=== PATIENT | male | born 1940 | race Caucasian/White ===

== ENCOUNTER 2018-01-01 07:41 | Day surgery (SDC) | payer MEDICARE ==
[~2018-01-01] VITALS: Ht 167.6 cm; Wt 63.6 kg
[~2018-01-01 07:41] MED LIST: FLUT12HF3 IH; IPRA4AER INH; TIOT18CA INH
[2018-01-01] MEDS ORDERED: LACTATED RINGERS 1,000 ML IV SCH (08:23)
[2018-01-01] MEDS ORDERED: MIDAZOLAM 1 MG/ML, 5ML ONE (09:15)
[2018-01-01] MEDS ORDERED: FENTANYL PF 100 MCG/2ML ONE (09:15)
[2018-01-01] MEDS ORDERED: LIDOCAINE GEL 2%, 5ML ONE (16:03)
[2018-01-01] MEDS ORDERED: LIDOCAINE 4% TOPICAL SOLUTION 50 ML ONE (16:03)
[2018-01-01] MEDS ORDERED: LIDOCAINE 1%, 50ML ONE (16:03)
== END 2018-01-01 12:30 | disposition home or self-care (01) ==
LOC: OUT 07:41
PROVIDERS: ATTEND Internal Medicine Critical Care Medicine
DX: R04.2 Hemoptysis (principal); N40.0 Benign prostatic hyperplasia without lower urinary tract symptoms; J40 Bronchitis, not specified as acute or chronic; Z87.891 Personal history of nicotine dependence; Z79.899 Other long term (current) drug therapy
CPT/HCPCS: 31622; 99152; 99153; J2250; J3010; J3490

== ENCOUNTER → 2018-10-07 | Outpatient (CLI) | payer MEDICARE | END | disposition home or self-care (01) | LOC: PETCFH 12:21 | PROVIDERS: ATTEND Nurse Practitioner Family | DX: R91.8 Other nonspecific abnormal finding of lung field (principal) | CPT/HCPCS: 78815; A9552 ==

== ENCOUNTER 2018-11-07 05:24 | Inpatient (IN) | payer MEDICARE ==
[~2018-11-07] VITALS: Ht 167.6 cm; Wt 57.2 kg
[2018-11-07] MEDS ORDERED: ALBUTEROL/IPRATROPIUM 2.5MG/0.5MG, 3 ML ONE ×5 (05:32→18:55)
[2018-11-07] MEDS: ALBUTEROL/IPRATROPIUM 2.5MG/0.5MG, 3 ML NPPB SCH ×4 (05:44→15:00)
--- NOTE | 2018-11-07 05:49 | NUR ---
PT POSITIONED FOR COMFORT, HOB ELEVATES 35DEG AND REMAINS ON BIPAP. PT WITH BLOOD TO LAB AND X-RAY TO BEDSIDE IN NO DISTRESS AT THIS TIME.
[2018-11-07] MEDS ORDERED: ALBUTEROL/IPRATROPIUM 2.5MG/0.5MG, 3 ML NPPB PRN (06:00)
[2018-11-07 06:37] LABS: TROPONIN I 0.603 ng/mL (0.000-0.045)
--- NOTE | 2018-11-07 06:37 | NUR ---
PT REMAINS ON BIP[AP AND IN NO DISTRESS VSS WITH RESP TX X 3 COMPLETE.
--- NOTE | 2018-11-07 07:00 | NUR ---
REPORT FROM CLOTILDE MUÑIZ. PT RESTING ON Omnistream. CALL LIGHT IN REACH. CP MONITORS IN PLACE.
--- NOTE | 2018-11-07 07:43 | NUR ---
RT TO BEDSIDE. PT SWITCHESD FROM BIPAP TO VAPOTHERM.
--- NOTE | 2018-11-07 09:14 | NUR ---
AT BEDSIDE FOR CENTRAL LINE PLACEMENT.
[2018-11-07] MEDS ORDERED: SODIUM CHLORIDE 0.9% 1,000ML IVBOLUS ONE (09:30)
--- NOTE | 2018-11-07 09:41 | NUR ---
PT BACK ON BIPAP, SATS LOW 80'S ON VAPOTHERM. RT AT BEDSIDE. PT SATS NOW 98%.
[2018-11-07 12:58] LABS: MEAN CORPUSCULAR HEMOGLOBIN 31.8 pg (27.5-34.5); MEAN CORPUSCULAR HGB CONC 32.4 g/dL (33.2-36.2); MEAN CORPUSCULAR VOLUME 98.2 fL (81-97); MEAN PLATELET VOLUME 7.1 fL (7.4-10.4); PLATELET COUNT 404 x10^3/uL (130-400); RED BLOOD COUNT 3.52 x10^6/uL (4.38-5.82); RED CELL DISTRIBUTION WIDTH 16.6 % (9.4-14.8)
[2018-11-07 13:08] LABS: TROPONIN I 0.573 ng/mL (0.000-0.045)
[2018-11-07 13:13] LABS: BASOPHILS % (AUTO) 0 % (0-1); EOSINOPHILS % (AUTO) 0 % (1-7); LYMPHOCYTES # (AUTO) 0.17 x10^3/uL (1-3.4); LYMPHOCYTES % (AUTO) 2 % (22-44); MD SCAN; MONOCYTES # (AUTO) 0.25 x10^3/uL (0.2-0.8); MONOCYTES % (AUTO) 3 % (2-9); NEUTROPHILS # (AUTO) 8.63 x10^3/uL (1.8-6.8); NEUTROPHILS % (AUTO) 95 % (42-75)
--- NOTE | 2018-11-07 13:23 | NUR ---
REPORT TO IRINA MUÑIZ.
--- NOTE | 2018-11-07 14:10 | NUR ---
PT ASSISTED WITH URINAL. APPROX 300 ML URINE OUTPUT. CLEAR YELLOW.
[2018-11-07 14:30] LABS: ALANINE AMINOTRANSFERASE 16 U/L (12-78); ALBUMIN 2.6 g/dL (3.4-5.0); ANION GAP 10 mmol/L (5-15); CALCIUM 7.9 mg/dL (8.5-10.1); CHLORIDE 114 mmol/L (98-107); CREATININE 0.89 mg/dL (0.7-1.3)
[2018-11-07 14:33] LABS: ALKALINE PHOSPHATASE 61 U/L (45-117); BILIRUBIN,TOTAL 0.3 mg/dL (0.2-1.0); TOTAL PROTEIN 5.8 g/dL (6.4-8.2)
[2018-11-07] MEDS ORDERED: GABA300C10 PO (14:45)
[2018-11-07] MEDS ORDERED: BISACODYL 10 MG SUPP PR PRN (15:00)
[2018-11-07] MEDS ORDERED: hydrALAzine 20 MG/ML, 1ML IVPush PRN (15:00)
[2018-11-07] MEDS ORDERED: ENALAPRILAT 1.25 MG/ML, 2ML IVPush PRN (15:00)
[2018-11-07] MEDS ORDERED: DOCUSATE 100 MG CAPSULE PO PRN (15:00)
[2018-11-07] MEDS ORDERED: POLYETHYLENE GLYCOL 17 GM PACKET PO PRN (15:00)
[2018-11-07] MEDS ORDERED: LABETALOL 5MG/ML, 20ML IVPush PRN (15:00)
[2018-11-07] MEDS ORDERED: morphine SULFATE 10 MG/ML, 1ML IVPush PRN (15:00)
[2018-11-07] MEDS ORDERED: ONDANSETRON 2MG/ML, 2ML IVPush PRN (15:00)
[2018-11-07] MEDS ORDERED: GUAIFENESIN/DM 200-20MG, 10ML UDC PO PRN (15:00)
[2018-11-07] MEDS ORDERED: ACETAMINOPHEN 325 MG TABLET PO PRN (15:00)
[2018-11-07] MEDS ORDERED: ONDANSETRON ODT 4 MG PO PRN (15:00)
[2018-11-07] MEDS: LINEZOLID PMX 600MG/300ML 300 ML IV SCH (15:27)
[2018-11-07] MEDS: methylPREDNISolone SOD SUCC 125 MG/2 ML IVPush SCH ×2 (15:27→20:09)
[2018-11-07] MEDS: ENOXAPARIN 40 MG/0.4 ML SQ SCH (15:27)
[2018-11-07] MEDS: HYDROcodone/APAP 5/325 TABLET PO PRN ×2 (17:40→23:55)
[2018-11-07] MEDS: PIPERACILLIN/TAZO/PMX 3.375GM 50 ML IV SCH ×2 (17:40→20:09)
[2018-11-07] MEDS: FAMOTIDINE 20 MG/2 ML IVPush SCH (20:09)
[2018-11-07 20:35] LABS: TROPONIN I 0.426 ng/mL (0.000-0.045)
[2018-11-07] MEDS: BUDESONIDE 0.5 MG/2 ML INHA INH SCH (20:46)
[2018-11-07] MEDS ORDERED: BUDESONIDE 0.5 MG/2 ML INHA INH SCH (21:00)
[2018-11-07] MEDS: TRAZODONE 100MG TABLET PO SCH (22:31)
[2018-11-08] MEDS: PIPERACILLIN/TAZO/PMX 3.375GM 50 ML IV SCH ×4 (02:55→20:13)
[2018-11-08] MEDS: LINEZOLID PMX 600MG/300ML 300 ML IV SCH ×2 (02:55→16:58)
[2018-11-08 03:20] LABS: MEAN CORPUSCULAR HEMOGLOBIN 30.8 pg (27.5-34.5); MEAN CORPUSCULAR HGB CONC 31.4 g/dL (33.2-36.2); MEAN PLATELET VOLUME 7.2 fL (7.4-10.4); PLATELET COUNT 390 x10^3/uL (130-400); RED BLOOD COUNT 3.56 x10^6/uL (4.38-5.82); RED CELL DISTRIBUTION WIDTH 16.9 % (9.4-14.8)
[2018-11-08 03:26] LABS: ALANINE AMINOTRANSFERASE 18 U/L (12-78); ALBUMIN 2.6 g/dL (3.4-5.0); ANION GAP 9 mmol/L (5-15); CALCIUM 8.1 mg/dL (8.5-10.1); CHLORIDE 110 mmol/L (98-107); CHOLESTEROL, TOTAL 130 mg/dL (140-239); CREATININE 0.83 mg/dL (0.7-1.3)
[2018-11-08] MEDS: methylPREDNISolone SOD SUCC 125 MG/2 ML IVPush SCH ×4 (03:27→20:13)
[2018-11-08 03:28] LABS: ALKALINE PHOSPHATASE 56 U/L (45-117); BILIRUBIN,TOTAL 0.3 mg/dL (0.2-1.0); HDL CHOL % 34 % (26-37); HDL CHOLESTEROL (DIRECT) 44 mg/dL (40-60); LDL CHOLESTEROL,CALCULATED 75 mg/dL (54-169); LDL/HDL RATIO 1.7 (0.5-3.0); TOTAL PROTEIN 5.6 g/dL (6.4-8.2); TRIGLYCERIDES 54 mg/dL (50-200); VLDL CHOLESTEROL 11 mg/dL (0-25)
[2018-11-08 03:30] VITALS: BP 128/75
[2018-11-08 03:37] LABS: TROPONIN I 0.427 ng/mL (0.000-0.045)
[2018-11-08 03:45] LABS: BASOPHILS % (AUTO) 0 % (0-1); EOSINOPHILS % (AUTO) 0 % (1-7); LYMPHOCYTES # (AUTO) 0.21 x10^3/uL (1-3.4); LYMPHOCYTES % (AUTO) 1 % (22-44); MD SCAN; MONOCYTES # (AUTO) 0.48 x10^3/uL (0.2-0.8); MONOCYTES % (AUTO) 3 % (2-9); NEUTROPHILS # (AUTO) 14.38 x10^3/uL (1.8-6.8); NEUTROPHILS % (AUTO) 95 % (42-75)
[2018-11-08] MEDS: BUDESONIDE 0.5 MG/2 ML INHA INH SCH ×2 (08:40→18:30)
[2018-11-08] MEDS: FAMOTIDINE 20 MG/2 ML IVPush SCH (08:44)
[2018-11-08] MEDS ORDERED: FUROSEMIDE 40 MG/4 ML IV ONE (15:00)
[2018-11-08] MEDS: ENOXAPARIN 40 MG/0.4 ML SQ SCH (15:00)
[2018-11-08] MEDS: TRAZODONE 100MG TABLET PO SCH (20:13)
[2018-11-08] MEDS: FAMOTIDINE 20 MG TABLET PO SCH (20:13)
[2018-11-09] MEDS: PIPERACILLIN/TAZO/PMX 3.375GM 50 ML IV SCH ×4 (02:31→20:39)
[2018-11-09] MEDS: methylPREDNISolone SOD SUCC 125 MG/2 ML IVPush SCH ×3 (03:04→15:00)
[2018-11-09] MEDS: LINEZOLID PMX 600MG/300ML 300 ML IV SCH ×2 (03:04→15:17)
[2018-11-09 04:30] VITALS: BP 116/72
[2018-11-09] MEDS: FAMOTIDINE 20 MG TABLET PO SCH ×2 (08:10→20:39)
[2018-11-09] MEDS: BUDESONIDE 0.5 MG/2 ML INHA INH SCH ×2 (08:50→18:54)
[2018-11-09 09:12] LABS: MEAN CORPUSCULAR HEMOGLOBIN 30.9 pg (27.5-34.5); MEAN CORPUSCULAR VOLUME 96.7 fL (81-97); MEAN PLATELET VOLUME 6.9 fL (7.4-10.4); PLATELET COUNT 481 x10^3/uL (130-400); RED BLOOD COUNT 4.35 x10^6/uL (4.38-5.82); RED CELL DISTRIBUTION WIDTH 17.6 % (9.4-14.8)
[2018-11-09 09:24] LABS: ANION GAP 7 mmol/L (5-15); CALCIUM 8.5 mg/dL (8.5-10.1); CHLORIDE 107 mmol/L (98-107); CREATININE 1.08 mg/dL (0.7-1.3)
[2018-11-09 09:34] LABS: MD YES
[2018-11-09 09:35] LABS: LYMPH#(MANUAL) 0.44 x10^3/uL (1-3.4); LYMPHS% (MANUAL) 2 % (22-44); MONOS#(MANUAL) 0.88 x10^3/uL (0.3-2.7); MONOS% (MANUAL) 4 % (2-9); SEG#(MANUAL) 20.68 x10^3/uL (1.8-6.8); SEGS% (MANUAL) 94 % (42-75)
[2018-11-09 09:36] LABS: ANISOCYTOSIS 1+
[2018-11-09 09:37] LABS: <PLATELET ESTIMATE> INCREASED; <PLT MORPHOLOGY> NORMAL PLT MORPH; HYPERSEG PMNs 1+
[2018-11-09] MEDS: ENOXAPARIN 40 MG/0.4 ML SQ SCH (15:15)
[2018-11-09] MEDS ORDERED: FUROSEMIDE 40 MG/4 ML IV ONE (15:30)
[2018-11-09] MEDS: TRAZODONE 100MG TABLET PO SCH (20:39)
[2018-11-10] MEDS: LINEZOLID PMX 600MG/300ML 300 ML IV SCH (02:41)
[2018-11-10] MEDS: methylPREDNISolone SOD SUCC 125 MG/2 ML IVPush SCH ×2 (02:43→14:38)
[2018-11-10 04:00] VITALS: BP 92/52
[2018-11-10] MEDS: PIPERACILLIN/TAZO/PMX 3.375GM 50 ML IV SCH ×4 (04:16→20:46)
[2018-11-10 05:05] LABS: ALANINE AMINOTRANSFERASE 29 U/L (12-78); ALBUMIN 2.6 g/dL (3.4-5.0); ANION GAP 8 mmol/L (5-15); BASOPHILS # (AUTO) 0.02 x10^3/uL (0-0.1); BASOPHILS % (AUTO) 0 % (0-1); CALCIUM 7.9 mg/dL (8.5-10.1); CHLORIDE 104 mmol/L (98-107); CREATININE 1.01 mg/dL (0.7-1.3); EOSINOPHILS % (AUTO) 0 % (1-7); LYMPHOCYTES # (AUTO) 0.53 x10^3/uL (1-3.4); LYMPHOCYTES % (AUTO) 3 % (22-44); MD NO; MEAN CORPUSCULAR HEMOGLOBIN 31.6 pg (27.5-34.5); MEAN CORPUSCULAR HGB CONC 32.3 g/dL (33.2-36.2); MEAN CORPUSCULAR VOLUME 97.8 fL (81-97); MEAN PLATELET VOLUME 7.3 fL (7.4-10.4); MONOCYTES # (AUTO) 0.91 x10^3/uL (0.2-0.8); MONOCYTES % (AUTO) 6 % (2-9); NEUTROPHILS # (AUTO) 14.91 x10^3/uL (1.8-6.8); NEUTROPHILS % (AUTO) 91 % (42-75); PLATELET COUNT 456 x10^3/uL (130-400); RED BLOOD COUNT 4.16 x10^6/uL (4.38-5.82); RED CELL DISTRIBUTION WIDTH 17.2 % (9.4-14.8)
[2018-11-10 05:07] LABS: ALKALINE PHOSPHATASE 54 U/L (45-117); BILIRUBIN,TOTAL 0.4 mg/dL (0.2-1.0); TOTAL PROTEIN 5.5 g/dL (6.4-8.2)
[2018-11-10] MEDS ORDERED: FUROSEMIDE 40 MG/4 ML IV ONE (07:00)
[2018-11-10] MEDS: POTASSIUM CHLORIDE 20 MEQ TAB.ER.PRT PO SCH ×2 (08:07→17:15)
[2018-11-10] MEDS: FAMOTIDINE 20 MG TABLET PO SCH ×2 (08:08→20:46)
[2018-11-10] MEDS: BUDESONIDE 0.5 MG/2 ML INHA INH SCH ×2 (09:00→19:07)
[2018-11-10] MEDS: ENOXAPARIN 40 MG/0.4 ML SQ SCH (14:37)
[2018-11-10] MEDS: TRAZODONE 100MG TABLET PO SCH (20:46)
[2018-11-11] MEDS: methylPREDNISolone SOD SUCC 125 MG/2 ML IVPush SCH (03:16)
[2018-11-11] MEDS: PIPERACILLIN/TAZO/PMX 3.375GM 50 ML IV SCH ×4 (03:17→21:33)
[2018-11-11] MEDS: FAMOTIDINE 20 MG TABLET PO SCH ×2 (09:00→21:32)
[2018-11-11] MEDS: BUDESONIDE 0.5 MG/2 ML INHA INH SCH ×2 (09:55→21:00)
[2018-11-11 14:00] VITALS: BP 109/67
[2018-11-11] MEDS: ENOXAPARIN 40 MG/0.4 ML SQ SCH (15:15)
[2018-11-11 18:40] VITALS: BP 116/72
[2018-11-11] MEDS: TRAZODONE 100MG TABLET PO SCH (21:32)
[2018-11-12 02:32] VITALS: BP 111/69
[2018-11-12] MEDS: PIPERACILLIN/TAZO/PMX 3.375GM 50 ML IV SCH ×4 (03:38→21:06)
[2018-11-12 05:28] LABS: ANION GAP 5 mmol/L (5-15); CALCIUM 8.2 mg/dL (8.5-10.1); CHLORIDE 107 mmol/L (98-107); MEAN CORPUSCULAR HEMOGLOBIN 30.6 pg (27.5-34.5); MEAN CORPUSCULAR HGB CONC 31.2 g/dL (33.2-36.2); MEAN CORPUSCULAR VOLUME 98.1 fL (81-97); MEAN PLATELET VOLUME 6.7 fL (7.4-10.4); PLATELET COUNT 432 x10^3/uL (130-400); RED BLOOD COUNT 4.18 x10^6/uL (4.38-5.82); RED CELL DISTRIBUTION WIDTH 17.4 % (9.4-14.8)
[2018-11-12 07:02] LABS: BASOPHILS # (AUTO) 0.03 x10^3/uL (0-0.1); BASOPHILS % (AUTO) 0 % (0-1); EOSINOPHILS # (AUTO) 0.12 x10^3/uL (0-0.4); EOSINOPHILS % (AUTO) 1 % (1-7); LYMPHOCYTES # (AUTO) 0.95 x10^3/uL (1-3.4); LYMPHOCYTES % (AUTO) 8 % (22-44); MD SCAN; MONOCYTES # (AUTO) 0.87 x10^3/uL (0.2-0.8); MONOCYTES % (AUTO) 7 % (2-9); NEUTROPHILS # (AUTO) 10.62 x10^3/uL (1.8-6.8); NEUTROPHILS % (AUTO) 84 % (42-75)
[2018-11-12 07:30] VITALS: BP 96/61
[2018-11-12] MEDS: BUDESONIDE 0.5 MG/2 ML INHA INH SCH ×2 (09:00→21:21)
[2018-11-12] MEDS: FAMOTIDINE 20 MG TABLET PO SCH ×2 (10:07→21:07)
[2018-11-12 14:00] VITALS: BP 102/69
[2018-11-12] MEDS ORDERED: CEFD300C37 PO (14:13)
[2018-11-12] MEDS: ENOXAPARIN 40 MG/0.4 ML SQ SCH (15:58)
[2018-11-12 19:30] VITALS: BP 111/65
[2018-11-12] MEDS: TRAZODONE 100MG TABLET PO SCH (21:07)
[2018-11-13 01:24] VITALS: BP 125/69
[2018-11-13] MEDS: PIPERACILLIN/TAZO/PMX 3.375GM 50 ML IV SCH ×2 (03:19→08:50)
[2018-11-13 07:23] VITALS: BP 94/58
[2018-11-13] MEDS: FAMOTIDINE 20 MG TABLET PO SCH (08:50)
== END 2018-11-13 12:04 | disposition left against medical advice (07) | DRG 871 ==
LOC: ED 05:43 → EDIP 09:20 → CCU 14:35 → 3NE 11-11 15:05
PROVIDERS: ADMIT Internal Medicine; ATTEND Internal Medicine
PROC: 5A09357 Assistance with Respiratory Ventilation, Less than 24 Consecutive Hours, Continuous Positive Airway Pressure (ICD-10-PCS; principal; 2018-11-07)
PROC: 02HV33Z Insertion of Infusion Device into Superior Vena Cava, Percutaneous Approach (ICD-10-PCS; 2018-11-07)
PROC: B548ZZA Ultrasonography of Superior Vena Cava, Guidance (ICD-10-PCS; 2018-11-07)
DX: A41.9 Sepsis, unspecified organism (principal); J96.21 Acute and chronic respiratory failure with hypoxia; E43 Unspecified severe protein-calorie malnutrition; J15.9 Unspecified bacterial pneumonia; R65.21 Severe sepsis with septic shock; E87.2 Acidosis; J90 Pleural effusion, not elsewhere classified; I31.3 Pericardial effusion (noninflammatory); T38.0X5A Adverse effect of glucocorticoids and synthetic analogues, initial encounter; K21.9 Gastro-esophageal reflux disease without esophagitis; N40.0 Benign prostatic hyperplasia without lower urinary tract symptoms; I27.20 Pulmonary hypertension, unspecified; D53.9 Nutritional anemia, unspecified; J43.9 Emphysema, unspecified; Z53.21 Procedure and treatment not carried out due to patient leaving prior to being seen by health care provider; D75.89 Other specified diseases of blood and blood-forming organs; Z96.1 Presence of intraocular lens; R91.8 Other nonspecific abnormal finding of lung field; I07.1 Rheumatic tricuspid insufficiency; Z99.81 Dependence on supplemental oxygen; Z91.19 Patient's noncompliance with other medical treatment and regimen; Z87.01 Personal history of pneumonia (recurrent); Z87.891 Personal history of nicotine dependence; Z91.81 History of falling; Y92.89 Other specified places as the place of occurrence of the external cause; Z68.20 Body mass index [BMI] 20.0-20.9, adult; Z98.42 Cataract extraction status, left eye; Z98.41 Cataract extraction status, right eye
CPT/HCPCS: 36415; 36600; 71045; 80048; 80053; 80061; 82803; 83605; 83735; 83880; 84100; 84145; 84484; 85025; 87040; 87070; 87077; 87081; 87186; 87205; 93005; 93306; 94640; 94660; 96360; G0378; J1650; J1940; J2020; J2405; J2543; J7620; J7626; J2270; J2930; J3490; J7030

== ENCOUNTER 2019-01-07 16:38 | Inpatient (IN) | payer MEDICARE ==
[~2019-01-07] VITALS: Ht 167.6 cm; Wt 54.8 kg
[2019-01-19 13:36] VITALS: BP 133/75
== END 2019-01-19 15:16 | DRG 871 ==
LOC: ED 17:11 → EDIP 17:12 → ED 17:23 → 4WST 19:40
PROVIDERS: ADMIT Family Medicine; ATTEND Family Medicine
DX: A41.9 Sepsis, unspecified organism (principal); I50.33 Acute on chronic diastolic (congestive) heart failure; J18.1 Lobar pneumonia, unspecified organism; J96.21 Acute and chronic respiratory failure with hypoxia; I31.3 Pericardial effusion (noninflammatory); K92.2 Gastrointestinal hemorrhage, unspecified; C34.32 Malignant neoplasm of lower lobe, left bronchus or lung; G47.00 Insomnia, unspecified; I27.20 Pulmonary hypertension, unspecified; I08.3 Combined rheumatic disorders of mitral, aortic and tricuspid valves; J43.9 Emphysema, unspecified; K21.9 Gastro-esophageal reflux disease without esophagitis; N40.0 Benign prostatic hyperplasia without lower urinary tract symptoms; R13.10 Dysphagia, unspecified; R65.20 Severe sepsis without septic shock; Z66 Do not resuscitate; Z87.891 Personal history of nicotine dependence; Z91.19 Patient's noncompliance with other medical treatment and regimen; Z99.81 Dependence on supplemental oxygen
CPT/HCPCS: 36415; 36600; 71045; 71260; 74230; 80048; 80053; 80069; 80202; 82803; 83605; 83735; 83880; 84145; 85025; 87040; 87070; 87077; 87186; 87205; 93005; 93306; 94640; 99291; G0378; J1644; J1940; J2543; J3370; J7613; J7620; J7626; Q0167; J2930; J7050; J7512